=== PATIENT | female | born 1995 | race Caucasian/White ===

== ENCOUNTER 2021-10-01 19:33 | Emergency (ER) | payer OTHER ==
[~2021-10-01] VITALS: Ht 165.1 cm; Wt 52.7 kg
[2021-10-01] MEDS ORDERED: GNP28TAB2 PO (19:46)
[2021-10-01 22:12] VITALS: BP 103/60
--- NOTE | 2021-10-01 22:33 | REPVR ---
PROCEDURE INFORMATION: Exam: XR Left Foot Exam date and time: 10/01/21 (8:22pm) Age: 26 years old Clinical indication: Trauma. female. TECHNIQUE: Imaging protocol: XR Left foot Views: 3 or more views COMPARISON: No relevant prior studies available FINDINGS: Bones/joints: Acute slightly displaced oblique fracture, distal half of the left 5th metatarsal bone. No dislocation. Soft tissues: Unremarkable. IMPRESSION: Acute oblique fracture, left 5th metatarsal bone. No dislocation. Electronically signed by: Leatha Vernon On 10/01/2021 22:33:19 PM
--- NOTE | 2021-10-02 06:05 | CR ---
CONSULTATION DATE: 10/01/2021 CHIEF COMPLAINT: Left fifth metatarsal fracture. HISTORY OF PRESENT ILLNESS: I was called by Dr. Guerra, [facility] ED physician this evening at approximately 10:35 p.m. on October 01, 2021. The patient fell down some steps. She is 8 weeks . She presented with left foot pain, no other injuries or concerns. Per Dr. Guerra, the x-rays shows an oblique fracture of the left fifth metatarsal. ASSESSMENT AND PLAN: As discussed with the provider, nonweightbearing, stiff sole shoe and follow-up this week in the clinic with crutches, rest, ice and elevation of the foot. We are both in agreement with the plan, understood and no further questions or concerns.
== END 2021-10-01 23:01 | disposition home or self-care (01) ==
LOC: M ED 19:33
DX: S92.352A Displaced fracture of fifth metatarsal bone, left foot, initial encounter for closed fracture (principal); W10.9XXA Fall (on) (from) unspecified stairs and steps, initial encounter; Y92.009 Unspecified place in unspecified non-institutional (private) residence as the place of occurrence of the external cause; Y93.9 Activity, unspecified; Y99.9 Unspecified external cause status; Z3A.08 8 weeks gestation of pregnancy

== ENCOUNTER 2022-04-18 17:05 | Outpatient (CLI) | payer OTHER ==
[~2022-04-18] VITALS: Ht 165.1 cm; Wt 66.9 kg
[~2022-04-18 17:05] MED LIST: GNP28TAB2 PO
[2022-04-18 17:24] VITALS: BP 114/70
[2022-04-18 19:42] LABS: APPEARANCE, URINE CLOUDY (CLEAR); BACTERIA, URINE AUTO 2+ (NEGATIVE); BILIRUBIN, URINE AUTO NEGATIVE (NEGATIVE); BLOOD, URINE BLOOD 1+ (NEGATIVE); COLOR, URINE YELLOW (YELLOW); GLUCOSE, URINE (UA) AUTO NEGATIVE (NEGATIVE); KETONE, URINE AUTO 1+ mg/dL (NEGATIVE); LEUKOCYTE ESTERASE, URINE AUTO 3+ (NEGATIVE); MUCUS, URINE SMALL (NEGATIVE); NITRITE, URINE AUTO NEGATIVE (NEGATIVE); PROTEIN, URINE AUTO NEGATIVE (NEGATIVE); RBC, URINE AUTO 12 /HPF (0-3); SPECIFIC GRAVITY URINE AUTO 1.009 (1.002-1.035); SQUAMOUS EPITHELIAL CELL UR AU 12 /HPF (0-6); UROBILINOGEN, URINE AUTO 0.2 mg/dL (0.0-2.0); WBC, URINE AUTO 97 /HPF (0-3)
== END 2022-04-18 20:40 | disposition home or self-care (01) ==
LOC: M LDO 17:05
PROVIDERS: ATTEND Obstetrics & Gynecology
DX: O47.03 False labor before 37 completed weeks of gestation, third trimester (principal); Z3A.36 36 weeks gestation of pregnancy; Z87.51 Personal history of pre-term labor
CPT/HCPCS: 59025; 81001; G0463

== ENCOUNTER 2022-05-04 19:46 | Inpatient (IN) | payer OTHER ==
[~2022-05-04] VITALS: Ht 165.1 cm; Wt 68.0 kg
[2022-05-04] VITALS (15 sets, daily range): BP systolic 97–137; BP diastolic 52–62
[2022-05-04] MEDS ORDERED: OXYTOCIN DRIP 30 UNITS in IV 1 EA IV PRN ×4 (20:15)
[2022-05-04] MEDS ORDERED: LR 1,000 ML IV SCH ×2 (20:15→23:15)
[2022-05-04] MEDS ORDERED: OXYTOCIN INJ 10 UNITS/ML VIAL (J2590) IV PRN (20:15)
[2022-05-04] MEDS ORDERED: TRANEXAMIC ACID INJection 1,000 MG in NS 100 ML IV PRN (20:15)
[2022-05-04] MEDS ORDERED: METHYLERGONOVINE MALEATE 0.2 MG/ML VIAL (J2210) IM PRN ×2 (20:15→23:15)
[2022-05-04] MEDS ORDERED: LACTATED RINGER'S 1000 ML IV ONE (20:15)
[2022-05-04] MEDS ORDERED: ZOLO25TA PO (20:27)
[2022-05-04 20:29] LABS: HEMATOCRIT 35.7 % (36.0-47.0); HEMOGLOBIN 12.3 g/dl (12.0-15.5); MEAN CORPUSCULAR HEMOGLOBIN 29.5 pg (27.0-33.0); MEAN CORPUSCULAR HGB CONC 34.5 g/dl (32.0-36.5); MEAN CORPUSCULAR VOLUME 85.6 fl (80.0-96.0); PLATELET COUNT, AUTOMATED 298 10^3/uL (150-450); RED BLOOD COUNT 4.17 10^6/uL (4.00-5.40); WHITE BLOOD COUNT 12.2 10^3/uL (4.0-10.0)
[2022-05-04] MEDS ORDERED: NALOXONE INJ 0.4MG/1ML VIAL (J2310 PER 1MG) IV PRN (21:00)
[2022-05-04] MEDS ORDERED: EPIDURAL/PCA KEYS XX PRN (21:00)
[2022-05-04] MEDS ORDERED: FENTANYL/ROPIVACAINE/NACL BAG 100 ML EPIDURAL SCH (21:00)
[2022-05-04] MEDS ORDERED: LACTATED RINGER'S 1000 ML IV PRN (21:00)
[2022-05-04] MEDS ORDERED: ONDANSETRON 4MG 2ML VIAL IV PRN (21:00)
[2022-05-04] MEDS ORDERED: REFRIGERATOR IV KEYS XX PRN (21:00)
[2022-05-04] MEDS ORDERED: ePHEDrine SULFATE 25 MG/5 ML(5MG/ML) SYRINGE IV PRN (21:00)
[2022-05-04] MEDS ORDERED: diphenhydrAMINE 50MG/ML VIAL (J1200) IV PRN (21:00)
[2022-05-04] MEDS ORDERED: EPIDURAL COMMENT XX SCH (21:00)
[2022-05-04] MEDS ORDERED: FENTANYL 2MCG/ML ROPIVACAINE 0.2% IN 0.9% NACL 100ML IVBAG As Ordered ONE (21:06)
[2022-05-04 22:33] LABS: CORD GAS ABE A -4.8; CORD GAS ABE V -3.5; CORD GAS HCO3 A 21.6 MEQ/L; CORD GAS O2 SAT A 28.2 %; CORD GAS O2 SAT V 45.1 %; CORD GAS PCO2 A 44.5 mmHg; CORD GAS PH A 7.303 UNITS; CORD GAS PH V 7.347 UNITS; CORD GAS PO2 V 19.7 mmHg; CORD GAS SBC A 19.1 MEQ/L; CORD GAS SBC V 20.5 MEQ/L; CORD GAS TCO2 A 22.9 MEQ/L; CORD GAS TCO2 V 23.2 MEQ/L
[2022-05-04] MEDS ORDERED: ACETAMINOPHEN TAB 650MG DOSE (2X325MG) PO PRN (23:15)
[2022-05-04] MEDS ORDERED: DOCUSATE SODIUM 100MG CAPSULE PO PRN (23:15)
[2022-05-04] MEDS ORDERED: RHOGAM 300 MCG (1500 IU) INJ (J2790) IM SCH (23:15)
[2022-05-04] MEDS ORDERED: METHYLERGONOVINE MALEATE 0.2 MG TAB PO PRN (23:15)
[2022-05-04] MEDS ORDERED: OXYTOCIN DRIP 30 UNITS in IV 1 EA IV SCH (23:15)
[2022-05-04] MEDS ORDERED: ANUSOL HC CREAM 30GM TOP PRN (23:15)
[2022-05-04] MEDS ORDERED: OXYTOCIN INJ 10 UNITS/ML VIAL (J2590) IV ONE (23:15)
[2022-05-04] MEDS ORDERED: ACETAMINOPHEN 500 MG TAB PO PRN (23:15)
[2022-05-04] MEDS ORDERED: OXYTOCIN DRIP 30 UNITS in IV 1 EA IV ONE (23:15)
[2022-05-04] MEDS ORDERED: DIBUCAINE 1% OINTMENT 30GM TOP PRN (23:15)
[2022-05-04] MEDS ORDERED: MOM 30ML SUSPENSION UDC PO PRN (23:15)
[2022-05-05 01:02] VITALS: BP 116/58
[2022-05-05 06:04] VITALS: BP 103/58
[2022-05-05 07:50] LABS: HEMATOCRIT 34.3 % (36.0-47.0); HEMOGLOBIN 11.4 g/dl (12.0-15.5); MEAN CORPUSCULAR HGB CONC 33.2 g/dl (32.0-36.5); MEAN CORPUSCULAR VOLUME 87.3 fl (80.0-96.0); PLATELET COUNT, AUTOMATED 262 10^3/uL (150-450); RED BLOOD COUNT 3.93 10^6/uL (4.00-5.40); WHITE BLOOD COUNT 17.3 10^3/uL (4.0-10.0)
[2022-05-05] MEDS: PRENATAL VITAMINS CHEWABLE TABLET PO SCH (10:02)
[2022-05-05] MEDS: IBUPROFEN 600MG TAB PO PRN ×2 (10:03→19:35)
[2022-05-05 18:00] VITALS: BP 105/55
[2022-05-06 06:02] VITALS: BP 108/56
[2022-05-06] MEDS: IBUPROFEN 600MG TAB PO PRN (06:08)
[2022-05-06] MEDS ORDERED: MEASLES,MUMPS,RUBELLA VACCINE INJ (MMR-II) (90707) SC.IMMUN ONE (09:00)
[2022-05-06] MEDS: PRENATAL VITAMINS CHEWABLE TABLET PO SCH (10:17)
== END 2022-05-06 18:45 | disposition home or self-care (01) | DRG 807 ==
LOC: M LDO 19:46 → M LDI 20:03 → M OBS 05-05 00:24
PROVIDERS: ADMIT Obstetrics & Gynecology; ATTEND Obstetrics & Gynecology
PROC: 10E0XZZ Delivery of Products of Conception, External Approach (ICD-10-PCS; principal; 2022-05-04)
DX: O99.344 Other mental disorders complicating childbirth (principal); Z37.0 Single live birth; Z3A.39 39 weeks gestation of pregnancy; O69.81X0 Labor and delivery complicated by cord around neck, without compression, not applicable or unspecified; F32.A Depression, unspecified